=== PATIENT | male | born 1955 | race Caucasian/White ===

== ENCOUNTER → 2024-03-30 | Outpatient (CLI) | payer BC, MEDICARE ==
[~2024-03-30] MED LIST: iohexol 350 MG/ML 50ML vial IV ONE; iohexol 350MG/ML 100ml bottle IV ONE
[2024-03-30 09:33] LABS: ALBUMIN 4.1 G/DL (3.4-5.0); ANION GAP 10 (8-16); BLOOD UREA NITROGEN 13 MG/DL (7-18); BUN/CREATININE RATIO 13.3 (10.0-20.0); CALCIUM 9.5 MG/DL (8.5-10.1); CHLORIDE 97 MMOL/L (99-107); CREATININE 0.98 MG/DL (0.60-1.10); GLUCOSE 134 MG/DL (70-104); POTASSIUM 4.7 MMOL/L (3.5-5.1); SODIUM 135 MMOL/L (135-145); TOTAL CARBON DIOXIDE 27.9 MMOL/L (24-32); eGFR 76 ML/MIN
== END | disposition home or self-care (01) ==
LOC: RAD 08:47
PROVIDERS: ATTEND Internal Medicine Interventional Cardiology
DX: I70.213 Atherosclerosis of native arteries of extremities with intermittent claudication, bilateral legs (principal); I70.8 Atherosclerosis of other arteries; I70.1 Atherosclerosis of renal artery; K80.20 Calculus of gallbladder without cholecystitis without obstruction; I10 Essential (primary) hypertension
CPT/HCPCS: 36415; 75635; 80048; Q9967